=== PATIENT | female | born 1930 | race Two or more races ===

== ENCOUNTER 2016-10-23 09:26 | Emergency (ER) | payer OTHER ==
[~2016-10-23] VITALS: Ht 147.3 cm; Wt 51.3 kg
[~2016-10-23 09:26] MED LIST: ATEN-60 PO; OMEP20CA74 OR; TRAM50TA2 PO
[2016-10-23] MEDS ORDERED: KETOROLAC TROMETH 60MG/2ML VIAL IM ONE (11:45)
[2016-10-23 13:30] VITALS: BP 171/89
== END 2016-10-23 15:24 | disposition home or self-care (01) ==
LOC: ER 09:28
DX: M17.11 Unilateral primary osteoarthritis, right knee (principal); I10 Essential (primary) hypertension; J44.9 Chronic obstructive pulmonary disease, unspecified; M81.0 Age-related osteoporosis without current pathological fracture; Z96.659 Presence of unspecified artificial knee joint; Z96.642 Presence of left artificial hip joint; Z88.0 Allergy status to penicillin; Z79.899 Other long term (current) drug therapy; Z96.641 Presence of right artificial hip joint
CPT/HCPCS: 73562; 74176; 93970; 96372; 99284; J1885